=== PATIENT | male | born 1955 | race Caucasian/White ===

== ENCOUNTER 2017-08-10 22:07 | Emergency (ER) | payer BC ==
[~2017-08-10] VITALS: Ht 190.5 cm; Wt 103.0 kg
[2017-08-10 22:07] VITALS: BP 163/93
--- NOTE | 2017-08-10 22:18 | PHYS DOC ---
Adult General Chief Complaint Chief Complaint: FLU SYMPTOM HPI HPI Patient is a 61 yo male presents with complaints of fevers at night and flu like symptoms. Patient denies vomiting or diarrhea although had some loose bowel movements 2 days ago but they have resolved. Patient denies any rashes, patient has had sick contacts at home. Review of Systems Review of Systems Constitutional: Yes to fever ] HENT: Yes to nasal congestion, no sore throat Respiratory: Yes to cough. No shortness of breath Cardiovascular: No chest pain GI: Yes to nausea. No abdominal pain, no vomiting, no diarrhea ia [] Musculoskeletal: Muscle aches Integument: Denies rash or skin lesions [] Neurologic: Denies headache, focal weakness or sensory changes [] All other systems were reviewed and found to be within normal limits, except as documented in this note. Allergies Allergies Allergies Coded Allergies Type Severity Reaction Last Updated Verified Sulfa (Sulfonamide Antibiotics) Allergy Unknown 08/10/17 Yes Physical Exam Physical Exam Constitutional: Well developed, well nourished, mild distress, non-toxic appearance. [] HENT: Normocephalic, atraumatic, bilateral external ears normal, oropharynx dry , no oral exudates, nose normal. [] Eyes: EOMI, conjunctiva normal, no discharge. [] Neck: Normal range of motion, no tenderness, supple, no stridor. No LAD, no meningeal signs Cardiovascular:Heart rate regular rhythm, no murmur, equal pulses, normal perfusion Lungs & Thorax: Bilateral breath sounds clear to auscultation, no tachypnea, no rales, no rhonchi, no wheezing Abdomen: Bowel sounds normal, soft, no tenderness, no masses, no pulsatile masses. [] Skin: Warm, dry, no erythema, no rash. [] Back: No tenderness, no CVA tenderness. [] Extremities: No tenderness, no DVT ROM intact, no edema. [] Neurologic: Alert and oriented X 3, normal motor function, normal speech, no focal deficits noted. [] Psychologic: Affect normal, judgement normal, mood normal. [] EKG EKG [] Radiology/Procedures Radiology/Procedures No acute findings on chest x-ray[] Course & Med Decision Making Course & Med Decision Making Pertinent Labs and Imaging studies reviewed. (See chart for details) [id number] patient feels improved. I had long discussion with the patient and the regarding the need for follow-up and recheck in 2-3 days if symptoms have not resolved or other worsening. Strict return precautions have been discussed. Patient agrees to follow-up as directed. [] Dragon Disclaimer Dragon Disclaimer This electronic medical record was generated, in whole or in part, using a voice recognition dictation system. Departure Departure: Impression: Primary Impression: Cough Additional Impressions: Dehydration Fever Condition: IMPROVED Referrals: AKILA KHANNA MD (PCP) Please follow with your primary care provider in 2-3 days for recheck and reevaluation. If your symptoms worsen please see your provider sooner or return to the emergency department Patient Instructions: Cough, Adult, Dehydration, Adult, [id number], Fever, Adult Scripts Ondansetron Hcl (ONDANSETRON HCL) 4 Mg Tablet 1 TAB PO PRN Q8HRS, #10 TAB 1 Refill Prov: Virgil TRAVIS MD 08/10/17 Benzonatate (TESSALON PERLE) 100 Mg Capsule 1 CAP PO TID, #21 CAP Prov: Virgil TRAVIS MD 08/10/17 Problem Qualifiers Virgil TRAVIS MD Aug 10, 2017 22:18
[2017-08-10] MEDS ORDERED: BENZONATATE 100 MG CAPSULE. PO ONE (23:00)
[2017-08-10] MEDS ORDERED: IV NORMAL SALINE 1,000ML 1,000 ML IV ONE (23:00)
[2017-08-10 23:02] LABS: INFLUENZA A PATIENT NEGATIVE (NEGATIVE); INFLUENZA B PATIENT NEGATIVE (NEGATIVE)
[2017-08-10 23:08] LABS: BASO % 0 % (0-3); CALCIUM 8.7 mg/dL (8.5-10.1); CREATININE 1.1 mg/dL (0.7-1.3); EOS # 0.1 x10^3/uL (0.0-0.7); EOS % 1 % (0-3); GFR 67.6; HEMATOCRIT 43.1 % (39.0-53.0); HEMOGLOBIN 15.1 g/dL (13.0-17.5); LYMPH # 1.5 x10^3/uL (1.0-4.8); LYMPH % 18 % (24-48); MEAN CORPUSCULAR HEMOGLOBIN 32 pg (25-35); MEAN CORPUSCULAR HGB CONC 35 g/dL (31-37); MEAN CORPUSCULAR VOLUME 90 fL (79-100); MONO # 0.6 x10^3/uL (0.0-1.1); MONO % 7 % (0-9); NEUT # 6.3 x10^3uL (1.8-7.7); NEUT % 73 % (31-73); PLATELET COUNT 186 x10^3/uL (140-400); POTASSIUM 3.6 mmol/L (3.5-5.1); RED BLOOD COUNT 4.77 x10^6/uL (4.30-5.70); RED CELL DISTRIBUTION WIDTH 13.2 % (11.5-14.5); WHITE BLOOD COUNT 8.6 x10^3/uL (4.0-11.0)
--- NOTE | 2017-08-10 23:25 | RAD ---
Chest, 2 views, 08/10/2017: HISTORY: Cough and fever The heart size is normal. The lungs are clear. There is no evidence of pleural fluid. IMPRESSION: No acute cardiopulmonary abnormality is detected. Electronically signed by: Don Hernandez MD (08/10/2017 11:22 PM) [facility] [id number]
[2017-08-10] MEDS ORDERED: ONDA4TAB11 PO (23:50)
[2017-08-10] MEDS ORDERED: BENZ100C PO (23:50)
[2017-08-11] MEDS ORDERED: ONDANSETRON PF 4 MG/2 ML VIAL. IV ONE (00:15)
[2017-08-11] MEDS ORDERED: BENZONATATE 100 MG CAPSULE. PO ONE (00:15)
== END 2017-08-11 | disposition home or self-care (01) ==
LOC: ER 22:07
DX: E86.0 Dehydration (principal); R50.9 Fever, unspecified; Z88.2 Allergy status to sulfonamides
CPT/HCPCS: 36415; 71046; 80048; 85025; 87804; 96360; 99285-25; J7030